=== PATIENT | female | born 1945 | race Caucasian/White ===

== ENCOUNTER 2016-12-23 13:25 | Emergency (ER) | payer OTHER ==
[~2016-12-23] VITALS: Ht 157.5 cm; Wt 63.5 kg
[~2016-12-23 13:25] MED LIST: MOBIC15 MG PO; PRAVACHOL20 M2 PO; ZANTAC 7575 MG PO; ZITHROMAX250 MG PO
[2016-12-23 13:34] VITALS: BP 129/78
--- NOTE | 2016-12-23 14:06 | ED ANIMAL BITE/WOUND CHECK ---
History of Present Illness General Chief Complaint: Animal/Insect Bite Stated Complaint: TICK BITE Source: patient Exam Limitations: no limitations Vital Signs & Intake/Output Vital Signs & Intake/Output Vital Signs Date Time Temp Pulse Resp B/P B/P Pulse O2 O2 Flow FiO2 Mean Ox Delivery Rate 12/23 1334 97.7 75 16 129/78 96 Room Air Triage Note: PT STATES SHE GOT BIT BY A TICK AND STATES SHE THINKS THE AREA IS SWOLLEN ON HER NECK Triage Nurses Notes Reviewed? yes Onset: Abrupt Duration: hour(s):, constant Timing: single episode today Injury Environment: home HPI: 71-year-old female comes into emergency room after pulling a tick off her right upper chest wall. Take was non-there more than 24 hours. Patient has a small bump to the area. Patient comes in for further evaluation. Denies any fever or chills. Denies any rashes. Denies any other associated symptoms. Denies any pain. (MACIEJ BEGUM) Allergies Coded Allergies: lactose (Intermediate, GI DISTRESS 12/23/16) Reconcile Medications Pravastatin Sodium (Pravachol) 20 MG TABLET 1 TAB PO DAILY CHOLESTEROL ( Reported) (YAZMIN MITCHELL,CRYSTAL Jacinto) Past History Travel History Traveled to [place] past 21 day No Medical History Any Pertinent Medical History? see below for history Cardiovascular: ELEVATED CHOLESTEROL Gastrointestinal: GERD Surgical History Surgical History: non-contributory Psychosocial History What is your primary language Syriac Tobacco Use: Never used ETOH Use: occasional use Illicit Drug Use: denies illicit drug use Family History Hx Contributory? No (MACIEJ BEGUM) Review of Systems Review of Systems Constitutional: Reports: no symptoms. EENTM: Reports: no symptoms. Respiratory: Reports: no symptoms. Cardiovascular: Reports: no symptoms. GI: Reports: no symptoms. Genitourinary: Reports: no symptoms. Musculoskeletal: Reports: no symptoms. Skin: Reports: see HPI. Neurological/Psychological: Reports: no symptoms. Hematologic/Endocrine: Reports: no symptoms. Immunologic/Allergic: Reports: no symptoms. All Other Systems: Reviewed and Negative (MACIEJ BEGUM) Physical Exam Physical Exam General Appearance: well developed/nourished Head: atraumatic Eyes: Bilateral: normal appearance. Ears, Nose, Throat: normal ENT inspection, hearing grossly normal Neck: normal inspection Respiratory: no respiratory distress, small bump 3 mm Back: normal inspection Extremities: normal range of motion Neurologic/Psych: awake, alert, oriented x 3, normal mood/affect Skin: intact, normal color, warm/dry Lymphatic: no anterior cervical walker (MACIEJ BEGUM) Progress Differential Diagnosis: abscess, cellulitis, joint infection, tenosysnovitis, tick bite Plan of Care: Current Medications Sig/Delia Start time Last Medication Dose Stop Time Status Admin Doxycycline Hyclate 200 MG ONCE ONE 12/23 1414 UNVr 12/23 (Vibramycin) 12/23 1416 1415 Comments: 12/23/2016 2:17:36 PM Patient given one-time dose of doxycycline. Follow-up with primary care doctor as needed. (MACIEJ BEGUM) Departure Departure Disposition: HOME OR SELF CARE Condition: Stable Clinical Impression Primary Impression: Tick bite Referrals: ANTHONY MITCHELL,CRYSTAL Roblero (PCP/Family) Additional Instructions: If you develope a Bullseye rash, fever, joint pain follow-up with your primary care doctor for outpatient Lyme titer. Return if any other concerns worsening symptoms. Please go over all results of today's visit with your primary care doctor. Contact your primary care doctor to let them know you were here in the emergency room. There may be nonspecific findings which may not be related to your visit today here in the emergency room but may require further evaluation and chronic monitoring by your primary care doctor. If you had a laceration today the chance of foreign body always remains. You should follow-up with your primary care doctor for recheck in 3-5 days for a wound check. If you had an x-ray done there is a chance that a fracture could have been missed on initial read and you should follow-up with your primary care doctor for repeat x-rays if symptoms persist. If your blood pressure was elevated here in the emergency room please have rechecked by her primary care doctor within the next 48 hours by your primary care doctor. If you were prescribed a narcotic here in the emergency room or any type of controlled substances you're not allowed to drive while taking this medication or operate any type of heavy machinery. Narcotics can make you feel lightheaded dizziness nausea and can cause constipation. You may need to fruit picker a stool softener. Thank you for choosing [facility] emergency room. Please return to the emergency room immediately if you have any other concerns worsening of symptoms. Departure Forms: Customer Survey General Discharge Information (MACIEJ BEGUM) PA/FIELD SALES EXECUTIVE Co-Sign Statement Statement: ED Attending supervision documentation- [] I saw and evaluated the patient. I have also reviewed all the pertinent lab results and diagnostic results. I agree with the findings and the plan of care as documented in the PA's/FIELD SALES EXECUTIVE's documentation. [X] I have reviewed the ED Record and agree with the PA's/FIELD SALES EXECUTIVE's documentation. [] Additions or exceptions (if any) to the PAs/FIELD SALES EXECUTIVE's note and plan are summarized below: [] (YAZMIN MITCHELL,CRYSTAL Jacinto)
== END 2016-12-23 14:20 ==
LOC: ERH 13:25
DX: S20.361A Insect bite (nonvenomous) of right front wall of thorax, initial encounter (principal); W57.XXXA Bitten or stung by nonvenomous insect and other nonvenomous arthropods, initial encounter

== ENCOUNTER 2017-12-11 12:37 | Emergency (ER) | payer OTHER ==
[~2017-12-11] VITALS: Ht 157.5 cm; Wt 63.5 kg
[2017-12-11 14:35] VITALS: BP 150/96
--- NOTE | 2017-12-11 15:27 | ED ANIMAL BITE/WOUND CHECK ---
History of Present Illness General Chief Complaint: Animal/Insect Bite Stated Complaint: CAT SCRATCH R LEG Source: patient Exam Limitations: no limitations Allergies Coded Allergies: lactose (Intermediate, GI DISTRESS 12/23/16) Reconcile Medications Amoxicillin/Potassium Clav (Augmentin 875-125 Tablet) 875 MG-125 MG TABLET 1 TAB PO BID cat scratch Pravastatin Sodium (Pravachol) 20 MG TABLET 1 TAB PO DAILY CHOLESTEROL ( Reported) Triage Note: PT WAS SCRATCHED ON ANKLE IN 3 PLACES BY HER CAT. BLEEDING CONTROLLED WITH BANDAIDS AT THIS TIME. PT STATES SHE CLEANSED WITH PEROXIDE AND PUT BACITRACIN ON SCRATCHES. LAST TD UNKNOWN Triage Nurses Notes Reviewed? yes Onset: Abrupt Duration: hour(s): Timing: single episode today Injury Environment: home Is Injury an Animal Bite? No Animal Type: cat Context of Animal Attack: unprovoked attack Appearance of Animal: appeared well Animal Immunization Status: unknown Observation/Capture: animal known/obs x10 days Severity of Attack: scratched Severity: mild HPI: 71yo female presents to ED complaining of cat scratch occurring this morning prior to arrival. Patient states her house cat was sleeping in her home and the patient accidently stepped on the cat's bed. This caused the cat to become startled to scratch her right lower leg. Patient was able to control bleeding prior to arrival. Patient is unsure of the vaccine status of her cat however reports that cat was acting normally. Patient is unsure of her last tetanus vaccine. (Mary Patel) Vital Signs & Intake/Output Vital Signs & Intake/Output ED Intake and Output 12/12 0000 12/11 1200 Intake Total Output Total Balance Patient 140 lb Weight Weight Reported by Patient Measurement Method (Filemon Lainez DO) Past History Travel History Traveled to [place] past 21 day No Medical History Any Pertinent Medical History? see below for history Cardiovascular: ELEVATED CHOLESTEROL Gastrointestinal: GERD Surgical History Surgical History: non-contributory Psychosocial History What is your primary language Arabic Tobacco Use: Never used ETOH Use: denies use Illicit Drug Use: denies illicit drug use Family History Hx Contributory? No (Mary Patel) Review of Systems Review of Systems Constitutional: Reports: no symptoms. EENTM: Reports: no symptoms. Respiratory: Reports: no symptoms. Cardiovascular: Reports: no symptoms. GI: Reports: no symptoms. Genitourinary: Reports: no symptoms. Musculoskeletal: Reports: no symptoms. Skin: Reports: see HPI. Neurological/Psychological: Reports: no symptoms. Hematologic/Endocrine: Reports: no symptoms. Immunologic/Allergic: Reports: no symptoms. All Other Systems: Reviewed and Negative (Mary Patel) Physical Exam Physical Exam General Appearance: well developed/nourished, no apparent distress, alert, awake Head: atraumatic, normal appearance Eyes: Bilateral: normal appearance. Ears, Nose, Throat: hearing grossly normal Neck: normal inspection, supple, full range of motion Respiratory: no respiratory distress Back: normal inspection, normal range of motion Extremities: two superficial excoriations to right lower leg with no active bleeding Neurologic/Psych: awake, alert, oriented x 3 Skin: exoriations (Mary Patel) Progress Differential Diagnosis: abscess, cellulitis, cat scratch, rabies exposure Plan of Care: Current Medications Sig/Delia Start time Last Medication Dose Stop Time Status Admin Tetanus/Diphtheria 0.5 ML ONCE ONE 12/11 1529 UNVr Toxoids Adsorbed 12/11 153 (Decavac) Patient's tetanus status updated today. Wounds cleaned here in the ED. Patient started on abx and educated on signs and symptoms of skin infection. Patient was scratche by her house cat which has been acting normally. I offered patient rabies vaccine and she elects to defer vaccine at this time and continue to observe her cat's behaviour. She will bring her cat to the vet this week for check up. Patient educated on signs and symptoms of rabies. The patient agrees with the plan of care. Spoke with Dr. Lainez who agrees with plan. (Mary Patel) Departure Departure Disposition: HOME OR SELF CARE Condition: Stable Clinical Impression Primary Impression: Cat scratch Referrals: Santa MITCHELL,Az Roblero (PCP/Family) Additional Instructions: Take full course of antibiotics as prescribed. Monitor your cat's behavior, make sure your cat does not start splaying unusual behavior including lethargy, aggression, drooling, anorexia. If your cat displays any unusual behavior please return to the emergency department for evaluation of rabies. Have your Evaluated by a bacteriology professor this week if possible. Monitor your wounds, if you develop any redness or swelling around site of wounds please follow-up here or at your primary doctor's office for further evaluation. Please note that there might be incidental findings in your evaluation that are unrelated to the current emergency department visit. Please notify your primary care doctor about this emergency department visit in order to obtain and review all of the testing performed so that these incidental findings can be monitored as needed. If you had an x-ray performed, please understand that some fractures may not be seen on the initial set of x-rays. If your symptoms persist you might need a repeat set of x-rays to check for such a fracture. If you had a laceration evaluated, please understand that foreign bodies such as glass or wood may not be visible to the naked eye or on plain x-rays. If the wound becomes red, swollen, increasingly more painful or if there is any drainage from the wound, please have it reevaluated by a physician for the possibility of a retained foreign body. If you're unable to follow up as outlined in the discharge instructions please return to the emergency department. Thank you for choosing the [facility] Emergency Department for your care. It was a pleasure to serve you today. Departure Forms: Customer Survey General Discharge Information Prescriptions: Current Visit Scripts Amoxicillin/Potassium Clav (Augmentin 875-125 Tablet) 1 TAB PO BID #20 TAB (Nohemy DRUMMOND,Mary Rocha) PA/SOLID WASTE MANAGER Co-Sign Statement Statement: ED Attending supervision documentation- [x] I saw and evaluated the patient. I have also reviewed all the pertinent lab results and diagnostic results. I agree with the findings and the plan of care as documented in the PA's/SOLID WASTE MANAGER's documentation. [] I have reviewed the ED Record and agree with the PA's/SOLID WASTE MANAGER's documentation. [] Additions or exceptions (if any) to the PAs/SOLID WASTE MANAGER's note and plan are summarized below: [] (Filemon Lainez DO)
[2017-12-11] MEDS ORDERED: AUGMENTIN 875-1 EACH PO (15:55)
== END 2017-12-11 16:25 ==
LOC: ERH 12:37
DX: S80.811A Abrasion, right lower leg, initial encounter (principal); W55.03XA Scratched by cat, initial encounter; Y93.01 Activity, walking, marching and hiking; Y92.009 Unspecified place in unspecified non-institutional (private) residence as the place of occurrence of the external cause
CPT/HCPCS: 90471; 90714